=== PATIENT | male | born 1980 | race Caucasian/White ===

== ENCOUNTER 2018-10-21 23:41 | Emergency (ER) | payer OTHER ==
[~2018-10-21] VITALS: Wt 75.0 kg
[2018-10-22] MEDS ORDERED: DIPHENHYDRAMINE 50 MG INJ IM ONE
[2018-10-22] MEDS ORDERED: HALOPERIDOL 5 MG INJ IM ONE
[2018-10-22] MEDS ORDERED: MIDAZOLAM 1 MG/ML 5 ML INJ IM ONE
[2018-10-22 02:41] VITALS: BP 143/95; PULSE 113; RESP 19
--- NOTE | 2018-11-12 23:18 | ERD ---
ER Documentation Chief Complaint Chief Complaint bib ra /pd from [facility] for drug use, aloc, violated restraining HPI This 38-year-old male who presents for evaluation of aggressive behavior and agitation in setting of drug use. Patient was brought in by ambulance, as well as police in custody. He arrives here for medical clearance. Patient arrived agitated and combative. ROS All systems reviewed and are negative except as per history of present illness. Medications Home Meds Active Scripts Ibuprofen* (Motrin*) 800 Mg Tab, 800 MG PO Q6H PRN for PAIN AND OR ELEVATED TEMP, #30 TAB Prov:MELODIE HOYOS MD 11/04/18 Allergies Allergies: Coded Allergies: No Known Allergy (Unverified , 10/22/18) PMhx/Soc Medical and Surgical Hx: Unable to obtain Smoking Status: Unknown if ever smoked Physical Exam Physical Exam Const: Agitated, combative, disheveled appearing Head: Atraumatic Eyes: Normal Conjunctiva ENT: Normal External Ears, Nose and Mouth. Neck: Full range of motion. No meningismus. Resp: Clear to auscultation bilaterally Cardio: Regular rate and rhythm, no murmurs Abd: Soft, non tender, non distended. Normal bowel sounds Skin: No petechiae or rashes Back: No midline or flank tenderness Ext: No cyanosis, or edema Neur: Awake and alert Psych: Aggressive and combative Results 24 hrs Laboratory Tests Test 10/22/18 00:48 White Blood Count 11.7 10^3/ul Red Blood Count 4.61 10^6/ul Hemoglobin 13.4 g/dl Hematocrit 38.1 % Mean Corpuscular Volume 82.6 fl Mean Corpuscular Hemoglobin 29.1 pg Mean Corpuscular Hemoglobin Concent 35.2 g/dl Red Cell Distribution Width 12.3 % Platelet Count 334 10^3/UL Mean Platelet Volume 8.8 fl Immature Granulocytes % 0.300 % Neutrophils % 77.3 % Lymphocytes % 14.5 % Monocytes % 7.6 % Eosinophils % 0.1 % Basophils % 0.2 % Nucleated Red Blood Cells % 0.0 /100WBC Immature Granulocytes # 0.040 10^3/ul Neutrophils # 9.1 10^3/ul Lymphocytes # 1.7 10^3/ul Monocytes # 0.9 10^3/ul Eosinophils # 0.0 10^3/ul Basophils # 0.0 10^3/ul Nucleated Red Blood Cells # 0.0 10^3/ul Sodium Level 142 mmol/L Potassium Level 3.8 mmol/L Chloride Level 108 mmol/L Carbon Dioxide Level 26 mmol/L Anion Gap 8 Blood Urea Nitrogen 14 mg/dl Creatinine 0.70 mg/dl Est Glomerular Filtrat Rate mL/min > 60 mL/min Glucose Level 115 mg/dl Calcium Level 9.9 mg/dl Total Bilirubin 0.6 mg/dl Direct Bilirubin 0.00 mg/dl Indirect Bilirubin 0.6 mg/dl Aspartate Amino Transf (AST/SGOT) 81 IU/L Alanine Aminotransferase (ALT/SGPT) 40 IU/L Alkaline Phosphatase 139 IU/L Total Protein 7.3 g/dl Albumin 4.1 g/dl Globulin 3.20 g/dl Albumin/Globulin Ratio 1.28 Salicylates Level < 1.0 mg/dl Acetaminophen Level < 10.0 ug/ml Ethyl Alcohol Level < 10.0 mg/dl Current Medications Medications Dose Sig/Holly Start Time Status Last (Trade) Ordered Route PRN Stop Time Admin Dose Reason Admin Midazolam 5 mg ONCE ONCE 10/22/18 DC 10/22/18 HCl IM 00:00 10/22/18 00:09 (Versed) 00:01 Haloperidol 5 mg ONCE ONCE 10/22/18 DC 10/22/18 (Haldol) IM 00:00 10/22/18 00:09 00:01 25 mg ONCE ONCE 10/22/18 DC Diphenhydrami IM 00:00 10/22/18 ne HCl 00:01 (Benadryl) Procedures/MDM 38-year-old male presents for concern for agitation. Patient was initially combative, requiring chemical restraint. Subsequently he was monitored for improvement in his symptoms, at which point he was reassessed, and was able to ambulate, and speak cohesively. I suspect his symptoms were most likely substance-induced, I do not suspect an organic cause such as meningitis, acute trauma or other infection. Discussed findings with patient, and patient was discharged to [facility], in stable medical condition, he is medically cleared at the time of discharge. Departure Diagnosis: Primary Impression: Drug use Additional Impression: Agitation Condition: Stable Patient Instructions: Drug Abuse Additional Instructions: Okay to SOTO Verma MD Nov 12, 2018 23:18
== END 2018-10-22 02:51 ==
LOC: E/R 23:41
DX: F10.99 Alcohol use, unspecified with unspecified alcohol-induced disorder (principal)
CPT/HCPCS: 36415; 80053; 80307; 85025; 93005; 96372; 99284; J1200; J1630; J2250

== ENCOUNTER 2018-11-04 18:34 | Emergency (ER) | payer OTHER ==
[~2018-11-04] VITALS: Ht 185.4 cm; Wt 86.0 kg
[2018-11-04 18:42] VITALS: Ht 185.4 cm; Wt 86.0 kg
--- NOTE | 2018-11-04 19:04 | ERD ---
ER Documentation Chief Complaint Chief Complaint left knee pain s/p mechanical trip&fall, GLF, - LOC, - nk/bk, w/ [employer] HPI 38-year-old gentleman who is currently in police custody. The patient states that he bumped his knee into some furniture. The patient appeared to be breaking into his girlfriend's apartment. He denies any fall or head trauma. Patient appears to be intoxicated but denies using any drugs or alcohol this evening. Patient is describing mild pain to the left kneecap. He is ambulatory at scene. Remainder of HPI is limited. ROS All systems reviewed and are negative except as per history of present illness. Medications Home Meds Active Scripts Ibuprofen* (Motrin*) 800 Mg Tab, 800 MG PO Q6H PRN for PAIN AND OR ELEVATED TEMP, #30 TAB Prov:MELODIE HOYOS MD 11/04/18 Allergies Allergies: Coded Allergies: No Known Allergy (Unverified , 10/22/18) FmHx Family History: No diabetes Physical Exam Vitals Vital Signs Date Temp Pulse Resp B/P (MAP) Pulse Ox O2 O2 Flow FiO2 Time Delivery Rate 11/04/18 98.7 134 20 120/78 99 18:42 (92) Physical Exam General: Disheveled, conversive, appears to be intoxicated, slightly Head: Normocephalic, atraumatic. Eyes: Pupils equally reactive, EOM intact ENT: Moist mucous membranes Neck: Supple, no lymphadenopathy Respiratory: Lungs clear bilaterally, no distress Cardiovascular: RRR, no murmurs, rubs, or gallops Abdominal: Soft, non-tender, non-distended, no peritoneal signs : Deferred MSK: Left knee with mild soft tissue tenderness over the patella. No li gamentous or tendinous instability. Full active and passive range of motion. Negative Patricia test. Neurovascular intact distally. Steady gait. Neurologic: Alert and oriented, moving all extremities, normal speech, no focal weakness, no cerebellar signs Skin: No rash Psych: Normal mood Procedures/MDM EKG, MONITORS, & DIAGNOSTIC IMAGING: X-ray left knee: IMPRESSION: 1. Preserved joint spaces. 2. No acute fracture or dislocation is seen. 3. Limited evaluation for a joint effusion. If there is history of trauma and concern for internal derangement consider CT or MRI. RPTAT: VV MEDICAL DECISION MAKING: While the patient does have evidence of mild intoxication the patient is conversive and has no evidence of head injury. The patient is able to localize. I do not believe he requires CT imaging of the head or cervical spine. X-ray imaging of the left knee would be appropriate. ER COURSE: * Low concern for fx, no indication for CT Patient safe for dc * DC into police custody. * Ambulatory here CONSULTATION: None DISPOSITION PLAN: The patient does not have an identifiable emergent medical condition that w arrants inpatient hospitalization at this time. The patient is deemed safe for discharge with outpatient follow-up. We discussed follow up with the patient's primary care doctor within 24 to 48 hours as needed. We also discussed return to the emergency room for worsening symptoms or worsening condition. Outpatient referral: None required Discharge Medications: Motrin Departure Diagnosis: Primary Impression: Contusion of left knee Encounter type: initial encounter Qualified Codes: S80.02XA - Contusion of left knee, initial encounter Condition: Stable MELODIE HOYOS MD Nov 04, 2018 19:04
[2018-11-04] MEDS ORDERED: IBUP800T48 PO (19:25)
[2018-11-04 19:34] VITALS: BP 122/88; PULSE 98; RESP 16
== END 2018-11-04 19:36 ==
LOC: E/R 18:34
DX: S80.02XA Contusion of left knee, initial encounter (principal); W22.8XXA Striking against or struck by other objects, initial encounter; Y92.9 Unspecified place or not applicable
CPT/HCPCS: 73562

== ENCOUNTER 2019-03-16 05:43 | Emergency (ER) | payer OTHER ==
[~2019-03-16] VITALS: Ht 185.4 cm; Wt 86.4 kg
[~2019-03-16 05:43] MED LIST: IBUP800T48 PO
[2019-03-16 05:44] VITALS: Ht 185.4 cm; Wt 86.4 kg
[2019-03-16] MEDS ORDERED: KETOROLAC 30 MG INJ IV STA (06:12)
[2019-03-16] MEDS ORDERED: SOD CHLORIDE 0.9% 500 ML IV ONE (06:30)
[2019-03-16] MEDS ORDERED: PIPER-TAZO 2.25 GM (PMX) 50 ML IVPB ONE (06:30)
--- NOTE | 2019-03-16 06:32 | EN ---
Date/Time of Note Date/Time of Note DATE: 03/16/19 TIME: 06:28 ER Progress Note I have seen and evaluated the patient along with the PA and/or [employer] provider. I agree with the evaluation and plan of care. Please see their documentation for full ER course and evaluation. In short: Patient presents after IV drug abuse with left antecubital fossa induration On exam: The left upper extremity has an indurated area approximately 1-1/2 cm in the medial aspect of the antecubital fossa. This is indurated with slight warmth but no significant tenderness or fluctuance, no lymphangitic spread. The patient is neurovascular intact and compartments are soft. Assessment and plan: Given the location and the fact that this is only consistent with induration I do not believe incision and drainage is appropriate. I discussed the case with my physician's financial services assistant who agrees. This is a location that would require specialty surgery incision and drainage if there was a true abscess. Given that the patient is otherwise well-appearing I believe a trial of IV antibiotics and outpatient oral antibiotics would be reasonable. Referral information will be given to the [facility] as well as outpatient orthopedic clinics. Return precautions were discussed and understood. First dose of medications given in the emergency department. MELODIE HOYOS MD Mar 16, 2019 06:32
--- NOTE | 2019-03-16 06:40 | ERD ---
ER Documentation Chief Complaint Chief Complaint L lower arm abscess (near elbow) x 1week HPI Patient is a 38 years old male with PMHx of drug abuse presents to the clinic for left proximal forearm abscess x 1 week. Patient admits to injecting left forearm with Heroin prior to onset of symptoms. Patient reports of 6/10 pain and admits to using methamphetamine yesterday. Patient admits to fever and chills. Denies taking any OTC medication. Patient admits to currently taking methadone. ROS All systems reviewed and are negative except as per history of present illness. Medications Home Meds Active Scripts Acetaminophen* (Tylophen*) 500 Mg Capsule, 2 CAP PO Q8H PRN for PAIN AND OR ELEVATED TEMP, #20 CAP Prov:TANISHA HOYOS PA-C 03/16/19 Cephalexin* (Keflex*) 500 Mg Capsule, 500 MG PO QID for 10 Days, #40 CAP Prov:TANISHA HOYOS PA-C 03/16/19 Sulfamethoxazole/Trimethoprim* (Bactrim Ds* Tablet) 1 Each Tablet, 1 TAB PO BID for 10 Days, #20 TAB Prov:TANISHA HOYOS PA-C 03/16/19 Ibuprofen* (Motrin*) 800 Mg Tab, 800 MG PO Q6H PRN for PAIN AND OR ELEVATED TEMP, #30 TAB Prov:MELODIE GUILLEN MD 11/04/18 Allergies Allergies: Coded Allergies: No Known Allergy (Unverified , 03/16/19) PMhx/Soc Hx Alcohol Use: Yes (socially) Hx Substance Use: No (denies) Hx Tobacco Use: Yes Smoking Status: Current every day smoker Physical Exam Vitals Vital Signs Date Temp Pulse Resp B/P (MAP) Pulse Ox O2 O2 Flow FiO2 Time Delivery Rate 03/16/19 100.3 152 20 131/98 100 05:44 (109) Physical Exam Const: No acute distress Head: Atraumatic Eyes: Normal Conjunctiva Resp: Clear to auscultation bilaterally Cardio: Regular rate and rhythm, no murmurs Abd: Soft, non tender, non distended. Normal bowel sounds Skin: Tender hard mass on left Antecubital fossa with overlying induration. Back: No midline or flank tenderness Ext: No cyanosis, or edema Neur: Awake and alert Psych: Normal Mood and Affect Results 24 hrs Current Medications Medications Dose Sig/Holly Start Time Status Last (Trade) Ordered Route PRN Stop Time Admin Dose Reason Admin Piperacillin 50 ml @ ONCE ONCE 03/16/19 DC 03/16/19 Sod/ 100 mls/hr IVPB 06:30 06:55 Tazobactam 03/16/19 06:59 Sod Ketorolac 30 mg ONCE STAT 03/16/19 DC 03/16/19 Tromethamine IV 06:12 06:34 (Toradol) 03/16/19 06:25 Sodium 500 ml @ Q1H ONCE 03/16/19 DC 03/16/19 Chloride 500 mls/hr IV 06:30 06:34 03/16/19 07:29 Procedures/MDM Patient was seen and evaluated for skin abscess with overlying cellulitis of left Antecubital fossa. Patient was given IV NS w/ Toradol and Zosyn. Low suspicion of sepsis. I&D withheld due to overlying cellulitis. Patient is stable and ready for discharge. Patient will be given Bactrim DS and Keflex and F/U with [facility] and Ortho. Patient was evaluated by Dr. Guillen as well. Patient was advised about harmful effects of drug use/abuse. Departure Diagnosis: Primary Impression: Abscess Condition: Stable Patient Instructions: Abscess, Incision And Drainage, Treating Drug Abuse and Addiction, Understanding Heroin Abuse and Addiction Referrals: [facility] Additional Instructions: Patient advised to return to the ED immediately for new or worsening symptoms. Patient advised to follow up with primary care provider in the next 24-48 hours. Patient verbalized understanding and agrees with treatment plan and course of action. If patient has no primary care they may follow up with [facility] [address] [place] [id number] or [facility] [address] [place] [address] or [facility] [address] [place] [address] TANISHA HOYOS PA-C Mar 16, 2019 06:40
[2019-03-16] MEDS ORDERED: CEPH-443 PO (07:07)
[2019-03-16] MEDS ORDERED: ACET500C5 PO (07:07)
[2019-03-16] MEDS ORDERED: SULF1TAB31 PO (07:07)
[2019-03-16 08:02] VITALS: BP 123/85; PULSE 120; RESP 18
== END 2019-03-16 08:11 | disposition home or self-care (01) ==
LOC: FTE 05:43
DX: L02.414 Cutaneous abscess of left upper limb (principal); F17.210 Nicotine dependence, cigarettes, uncomplicated
CPT/HCPCS: 96365; 96375; J1885; J2543; J7040; Z7502